=== PATIENT | male | born 1950 | race Caucasian/White ===

== ENCOUNTER → 2017-01-05 | Outpatient (CLI) | payer OTHER, MEDICARE ==
--- NOTE | ~2017-01-05 | ECHO ---
Transthoracic Echocardiography Report (TTE) Demographics Patient Name YUNIEL BYRD Date of Study 01/05/2017 Patient Number [id number] Visit Number [id number] Date of 1950 Room Number Gender Male Number Age 66 year(s) Referring Ilia Ovalle Bilingual Customer Service Specialist Jaqueline BENITEZT, Physician MD ANTIONETTE Watson Physician Interpreting Miguel Cervantes MD Party Demonstrator Physician Supervising Ordering Miguel Cervantes MD, MD/P Physician Nurse Stress Sterile Processing Technologist Conclusions Summary The estimated left ventricular ejection fraction is 60-65%. Moderate assymetric septal left ventricular hypertrophy. Diastolic assessment reveals Grade I diastolic dysfunction. There is trivial aortic stenosis by the Continuity Equation. The peak velocity is 1.83 m/s, the mean gradient is 8 mmHg, and the valve area based on the continuity equation is 2.06 cm2. Procedure Type of Study TTE procedure:2D Echocardiogram, M-Mode, Doppler , Color Doppler. Procedure Date Date: 01/05/2017 Start: 04:21 PM Study Location: Echo Lab Technical Quality: Adequate visualization Indications:Shortness of breath. Appropriate Use Criteria: 9 Patient Status: Routine HR: 58 bpm BP: 143/86 mmHg Allergies - No known allergies. M-Mode/2D Measurements LV Diastolic Dimension: 4.56 cm LV Systolic Dimension: 2.92 cm LV Septum Diastolic: 1.54 cm LV PW Diastolic: 1.14 cm AO Root Dimension: 2.9 cm Cardiac Output: 4.74 l/min AV Cusp Separation: 0.9 cm RV Diastolic Dimension: 2.74 cm LA volume: 41 ml LVOT: 2.2 cm RV Base: 2.05 cm LVOT VTI: 21.5 cm RV Mid: 2.17 cm LV Stroke volume: 81.69 ml TAPSE: 2.78 cm TDI-S': 17.4 cm/s Doppler Measurements AV Peak Velocity: 1.83 m/s MV Peak E-Wave: 0.8 m/s AV Peak Gradient: 13.4 mmHg MV Peak A-Wave: 0.99 m/s AV Mean Gradient: 8 mmHg MV E/A Ratio: 0.81 LVOT Peak Velocity: 0.93 m/s MV P1/2t: 70 msec TR Gradient:11.97 mmHg PV Peak Velocity: 0.82 m/s Estimated RAP:3 mmHg PV Peak Gradient: 2.69 mmHg Estimated RVSP: 15 mmHg Estimated PASP: 14.97 mmHg E' Septal Velocity: 0.07 m/s A' Septal Velocity: 0.11 m/s E' Lateral Velocity: 0.1 m/s A' Lateral Velocity: 0.09 m/s Findings Left Ventricle Mild concentric left ventricular hypertrophy. Diastolic assessment reveals Grade I diastolic dysfunction. Right Ventricle Mildly dilated right ventricle. Left Atrium Normal left atrial size. Right Atrium The right atrium is mildly dilated. Mitral Valve Mild mitral regurgitation by color Doppler. Aortic Valve The aortic valve is moderately sclerotic. Tricuspid Valve Trivial tricuspid regurgitation by color Doppler. Pulmonic Valve Normal pulmonic valve structure and function. Pericardial Effusion No evidence of pericardial effusion. Pleural Effusion No evidence of pleural effusion. Contractility Score LV regional wall motion:(0-Non visualized 1-Normal 2-Hypokinesis 3-Akinesis 4-Dyskinesis 5-Aneurysm) Signature dtt: Billy Rivera (cardio) dtd: 01/05/17 1621 Physician Self Edit
== END | disposition disaster alternative care site (69) ==
LOC: GCAR 16:00
DX: R06.02 Shortness of breath (principal); I51.7 Cardiomegaly; I51.9 Heart disease, unspecified; I35.0 Nonrheumatic aortic (valve) stenosis